=== PATIENT | male | born 1935 | race Caucasian/White ===

== ENCOUNTER 2016-09-23 09:35 | Day surgery (SDC) | payer MEDICARE, OTHER ==
[~2016-09-23] VITALS: Ht 177.8 cm; Wt 78.9 kg
[~2016-09-23 09:35] MED LIST: 0.9% Sodium Chloride 1,000 ML IV PRN; ACET-2605 PO; AMLO10TA3 PO; BISA-67 PO; CHOL200047 PO; CITA20TA PO; CYAN100085 PO; FOLI0.4T2 PO; MULT-1073 PO; OXYC5CAP4 PO; PANT40TA2 PO; POLY17PO6 PO; PSYL0.4C2 PO; Sodium Chloride LOK Flush 10 mL Syringe IV PRN; [UNRECOGNIZED DRUG - CODE] PO; fentaNYL-PF 50 mCg/mL 2 mL Inj IVPUSH PRN
[2016-09-23 10:25] VITALS: BP 154/84; PULSE 90; RESP 14; O2SAT 95
[2016-09-23] MEDS ORDERED: CALC600T12 PO (10:33)
[2016-09-23] MEDS ORDERED: 0.9% Sodium Chloride 1,000 ML IV ONE (10:58)
--- NOTE | 2016-09-23 11:50 | PCM.ENDCOL ---
Colonoscopy Date of Service: Sep 23, 2016 Physician Gui Roach MD Pre Procedure Diagnosis: Screening personal history of polyps family history of colon cancer Post Procedure Dx & Findings: Polyp hemorrhoids diverticuli Procedure Colonoscopy Prep adequate Withdrawal time 38 minutes After unremarkable rectal examination the Olympus video colonoscope was inserted patient's anal canal and was advanced to cecum. Landmarks were identified including the ileocecal valve and appendiceal orifice. Scope was withdrawn systematically. Visualized colonic mucosa showed healthy shiny mucosa with normal healthy-appearing vasculature. In the ascending colon, there was a 1 cm polyp behind a fold. The polyp was removed completely using hot snare. In the descending colon, there was a 3 mm polyp which was removed completely using cold snare. Sigmoid colon there were several small diverticula. In the rectum retroflexion was done which showed hemorrhoids. Anal canal was inspected carefully on the way out and hemorrhoids noted. Impression Polyp 2 status post complete removal and one of them was 1 cm polyp. Diverticuli Hemorrhoids Recommendation Repeat colonoscopy 3 years Diverticular diet Presedation Assessment Risks and Benefits Informed consent was obtained from the patient after all risks and benefits including but not limited to drug reaction, infection, pain, bleeding, perforation, as well as alternatives were discussed. Patient monitoring Continuous pulse oximetry, cardiac monitoring, blood pressure monitoring, IV access, and oxygen at 2L per nasal cannula. Periprocedural Fentanyl: Fentanyl 125mcg Incrementally Midazolam: Midazolam 8mg Incrementally Complications There were no periprocedural complications identified. Post Procedure Plan Post Procedure Recommendations 1. Restrict activities today. 2. Resume normal activities in the morning. 3. Resume medications. 4. Patient informed of normal post procedure side effects as bloating, drowsiness, blood streaking in the stool. 5. average risk CRCS. If colon polyps come back as: -Hyperplastic- can repeat colonoscopy in 10 years -Tubular adenoma- repeat colonoscopy in 5 years -Tubulovillous/villous adenoma- repeat colonoscopy in 3 years -If any dysplasia- return to clinic as soon as possible 6. Please don't hesitate to call me with any questions. Gui Roach MD Sep 23, 2016 11:50
[2016-09-23 11:52] VITALS: BP 123/68; PULSE 68; RESP 14; O2SAT 93
[2016-09-23 12:02] VITALS: BP 114/64; PULSE 67; RESP 14; O2SAT 93
[2016-09-23 12:31] VITALS: BP 138/76; PULSE 75; RESP 14; O2SAT 95
--- NOTE | 2016-09-24 14:23 | PATH ---
SURGICAL PATHOLOGY Attending Physician:Gui Roach M.D. CASE STATUS: Signed Out PATIENT NAME: FEI FRANCO III PID: [id number] : 1935 DATE COLLECTED:09/23/2016 20:18 SPECIMEN: 1: Colon, Biopsy 2: Colon, Biopsy CLINICAL HISTORY: 1). ASCENDING POLYP 2). DESCENDING POLYP FINAL DIAGNOSIS: 1.ASCENDING COLON POLYP: TUBULAR ADENOMA INVOLVING ALL BIOPSY FRAGMENTS. 2.DESCENDING COLON POLYP: TUBULAR ADENOMA INVOLVING SINGLE BIOPSY FRAGMENT. ICD10 CODE D12.2 GROSS DESCRIPTION: The specimen is received in two formalin filled containers labeled with the patient's name. 1). The specimen is sublabeled "ascending colon" and consists of 3 portions of tissue which aggregate to 0.7 x 0.6 x 0.6 CM. The specimen is entirely submitted in cassette 1A. 2). The specimen is sublabeled "descending polyp" and consists of 2 portions of tissue which aggregate to 0.4 x 0.4 x 0.3 CM. The specimen is entirely submitted in cassette 2A. 09/23/2016 [facility] MICRO DESCRIPTION: See diagnosis. ICD-9 CODES: CPT CODES: 1: 53854 2: 57986 Electronically Signed Out Frederic Trevino MD [facility] Pathology [facility] [address], [place] [address] Technical component performed at [facility], [facility] [address], [place], [address]
== END 2016-09-23 23:59 | disposition home or self-care (01) ==
LOC: END 09:35
PROVIDERS: ATTEND Internal Medicine
DX: Z12.11 Encounter for screening for malignant neoplasm of colon (principal); Z86.010 Personal history of colon polyps; Z80.0 Family history of malignant neoplasm of digestive organs; D12.2 Benign neoplasm of ascending colon; D12.4 Benign neoplasm of descending colon; K57.30 Diverticulosis of large intestine without perforation or abscess without bleeding; K64.9 Unspecified hemorrhoids
CPT/HCPCS: 45385; 88305; 99153; G0500; J2250; J3010; J7030